=== PATIENT | female | born 1980 | race Caucasian/White ===

== ENCOUNTER → 2022-03-08 11:30 | Outpatient (BNVA) | payer OTHER, SELFPAY | PROVIDERS: PCP Nurse Practitioner Family; Visit Provider Nurse Practitioner Family | DX: R68.83 Chills (without fever) (principal); B00.1 Herpesviral vesicular dermatitis | CPT/HCPCS: 87426 ==

== ENCOUNTER 2022-08-31 10:27 | Outpatient (CLI) | payer OTHER, SELFPAY ==
--- NOTE | 2022-08-31 10:49 | MM_ITS ---
WS: [id number] VIEWS: MLO and CC views both breasts. 3D digital tomosynthesis is also included in this exam. No prior exams. Findings: There was no sign of mass, architectural distortion or suspicious calcification in either breast. Th e breasts are heterogeneously dense which may obscure small masses. MM/[place] [id number] Impression: BI-RADS: 2-Benign finding. FOLLOW-UP: 1 Year Follow-up This mammogram was also analyzed by the Computer Aided Detection System [employer] e Guest Relations Officer.
== END 2022-08-31 10:28 | disposition home or self-care (01) ==
LOC: RAD 10:32 → MOBLMAM 10:50
PROVIDERS: PCP Nurse Practitioner Family; Visit Provider Nurse Practitioner Family
DX: Z12.31 Encounter for screening mammogram for malignant neoplasm of breast (principal)
CPT/HCPCS: 77063; 77067

== ENCOUNTER → 2023-08-03 14:43 | Outpatient (BNVA) | payer OTHER, SELFPAY | PROVIDERS: PCP Nurse Practitioner Family; Visit Provider Obstetrics & Gynecology | DX: Z01.419 Encounter for gynecological examination (general) (routine) without abnormal findings (principal); N93.9 Abnormal uterine and vaginal bleeding, unspecified | CPT/HCPCS: 87624 ==

== ENCOUNTER 2023-08-06 16:34 | Outpatient (CLI) | payer OTHER, SELFPAY ==
--- NOTE | 2023-08-06 16:45 | USR_ITS ---
PROCEDURE INFORMATION: Exam: US Pelvis, Complete, Non-Obstetric Exam date and time: 08/06/2023 4:57 PM Age: 42 years old Clinical indication: Other: Bleeding; Additional info: N93.9 - abnormal uterine and vaginal bleeding, unspecified TECHNIQUE: Imaging protocol: Transabdominal pelvic nonobstetric ultrasound. Complete exam. Real time ultrasound with image documentation. COMPARISON: No relevant prior studies available. FINDINGS: Uterus: Uterus is normal. Endometrial stripe is normal. Right ovary/adnexa: Right ovary demonstrates color blood flow with several follicles. Left ovary/adnexa: Left ovary demonstrates color blood flow with several follicles. Intraperitoneal space: No intraperitoneal fluid. Urinary bladder: Normal. Other findings: Trace nonspecific fluid in the pelvis. US/US pelv w/transvag [id number] IMPRESSION: 1. Endometrial stripe measures 7 mm, within normal limits for a premenopausal woman. 2. Right ovary demonstrates color blood flow with several follicles. 3. Left ovary demonstrates color blood flow with several follicles. 4. Trace nonspecific fluid in the pelvis.
== END 2023-08-06 16:35 | disposition home or self-care (01) ==
LOC: RAD 16:35
PROVIDERS: PCP Nurse Practitioner Family; Visit Provider Obstetrics & Gynecology
DX: N93.9 Abnormal uterine and vaginal bleeding, unspecified (principal)
CPT/HCPCS: 76830; 76856

== ENCOUNTER 2023-09-16 06:45 | Day surgery (SDC) | payer OTHER, SELFPAY ==
--- NOTE | 2023-09-15 21:52 | W.PM.OPSFHP ---
Same Day Surgery H&P Indication for Procedure/HPI DATE OF PROCEDURE: September 16, 2023 CHIEF COMPLAINT/INDICATIONFOR SURGICAL PROCEDURE: abnormal uterine bleeding PREOP DIAGNOSIS: abnormal uterine bleeding PLANNED PROCEDURE: Operation Date: 09/16/23 08:20 Proposed Procedures p Hysteroscopy Hysteroscopy w/ Endometrial Sampling 56401, N93.9(Not Applicable) - Manny Salamanca MD s Poylpectomy possible(Not Applicable) - Manny Salamanca MD 42 y.o. bleeding two weeks per month x several years Medications/Allergies* Home Medications Medication Instructions Recorded Confirmed Type Cannabidiol capsules 25 mg PO .2 HS 06/15/23 09/14/23 History L.acidophilus-L.plantarum-L.rhamnosus cap PO DAILY 06/15/23 08/18/23 History 1 billion cell capsule,delay rel (Probiotic Pearls Women's) amino acids 5 tab PO .5 X Daily 06/15/23 09/14/23 History d-mannose 500 mg capsule 500 mg PO .2 Daily 06/15/23 09/14/23 History ferrous gluconate 225 mg (27 mg 225 mg PO BID 06/15/23 09/14/23 History iron) tablet magnesium glycinate 600 mg PO .HS 06/15/23 09/14/23 History progesterone micronized 200 mg 200 mg PO DAILY 06/15/23 09/14/23 History capsule valacyclovir 500 mg tablet 500 mg PO DAILY 06/15/23 09/14/23 History (Valtrex) vitamin B complex 1 cap PO DAILY 06/15/23 09/14/23 History hydroxyzine HCl 50 mg tablet 20 mg PO QID PRN insomnia, anxiety 09/14/23 09/14/23 History Allergies/Adverse Reactions Allergy/AdvReac Type Severity Reaction Status Date / Time gluten Allergy Unknown Unknown Verified 09/14/23 10:28 Milk Containing Products Allergy Unknown Unknown Verified 09/14/23 10:28 (Dairy) Pertinent History/Comorbid Conditions* Medical History (Updated 08/16/23 @ 20:28 by Manny Salamanca MD) Psychiatric care Family History (Updated 08/03/23 @ 13:03 by Jennifer Cordero LPN) Diabetes Mother Heart disease Mother Hypercholesteremia Mother Breast cancer Mother Hypertension Mother Father Thyroid disease Mother Father Stroke Mother Denies family history of Colon cancer Ovarian cancer Prostate cancer Uterine cancer Pertinent Exam Findings alert, oriented x 3, clear to auscultation bilaterally and regular rate & rhythm Pertinent Data Pap 08-03-23 NILM, negative HPV Pelvic sono 08-06-23 normal uterus and ovaries Endometrium 7 mm Recommendations Surgery/Procedure today Coding Level of Care Code Acute Code for Chg Fwd Time Spent (min) 20
[2023-09-16] VITALS (8 sets, daily range): BP systolic 102–125; BP diastolic 64–82; PULSE 55–78; RESP 16–18; TEMP 36.2–36.6; O2SAT 95–100; BMI 23.9
[2023-09-16] MEDS: scopolamine 1.5 Patch 1 PATCH TRANSDERMA (07:37)
[2023-09-16] MEDS: sodium chloride 0.9% 1,000 ML 30 ML IV (07:42)
--- NOTE | 2023-09-16 07:52 | W.PM.OPSUD ---
Surgery/Procedure H&P Update DATE OF PROCEDURE: September 16, 2023 DATE H&P PERFORMED: 09/15/23 H&P UPDATE INFORMATION: I have reviewed H&P completed within last 30 days, I have examined patient prior to procedure and No changes to prior documentation PREOP DIAGNOSIS: abnormal uterine bleeding PLANNED PROCEDURE: Operation Date: 09/16/23 08:20 Proposed Procedures p Hysteroscopy Hysteroscopy w/ Endometrial Sampling 07029, N93.9(Not Applicable) - Manny Salamanca MD s Poylpectomy possible(Not Applicable) - Manny Salamanca MD
[2023-09-16 08:03] LABS: OR HCG Qualitative Urine Negative (Negative)
--- NOTE | 2023-09-16 08:17 | ANES.PREANE2 ---
Pre-Anesthetic Assessment Height/Weight: Height 1.6 m Weight 61.235 kg Temp Pulse Resp BP Pulse Ox O2 Del Method 97.9 F 69 18 118/64 99 Room Air 09/16/23 07:23 09/16/23 07:23 09/16/23 07:23 09/16/23 07:23 09/16/23 07:23 09/16/23 07:26 Preop Diagnosis: abnormal uterine bleeding Operation Date: 09/16/23 08:20 Proposed Procedures p Hysteroscopy Hysteroscopy w/ Endometrial Sampling 74663, N93.9(Not Applicable) - Manny Salamanca MD s Poylpectomy possible(Not Applicable) - Manny Salamanca MD Familial anesthetic complications: none Was Beta Tyshawn taken within 24 hours: N/A Was Clonidine taken within 24 hours: N/A Last intake: Intake Last Liquid Date 09/15/23 Last Liquid Time 22:30 Last Solid Date 09/15/23 Last Solid Time 18:30 Social No alcohol and No tobacco Exam alert, oriented x 3 and clear to auscultation bilaterally Airway Mallampati: Class II Dentition: full History/ROS No significant history except as noted Pulmonary None reported CV/HEM None reported None reported Hepatic None reported GI None reported Metabolic None reported Musc/skel None reported Neuropsych Anxiety Anesthetic Plan ASA status: 2 Anesthesia: Anesthesia Evaluation and General Risk of > 500 ml blood loss (7ml/kg in children): No Medications/Allergies Home Medications Medication Instructions Recorded Confirmed Last Taken Type Cannabidiol capsules 25 mg PO .2 HS 06/15/23 09/14/23 09/13/23 History L.acidophilus-L.plantarum-L.rhamnosus cap PO DAILY 06/15/23 08/18/23 09/13/23 History 1 billion cell capsule,delay rel (Probiotic Pearls Women's) amino acids 5 tab PO .5 X Daily 06/15/23 09/14/23 Unknown History d-mannose 500 mg capsule 500 mg PO .2 Daily 06/15/23 09/14/23 09/13/23 History escitalopram oxalate 20 mg tablet 20 mg PO DAILY #30 tabs 06/15/23 09/14/23 09/13/23 Rx (Lexapro) ferrous gluconate 225 mg (27 mg 225 mg PO BID 06/15/23 09/14/23 09/13/23 History iron) tablet magnesium glycinate 600 mg PO .HS 06/15/23 09/14/23 09/13/23 History progesterone micronized 200 mg 200 mg PO DAILY 06/15/23 09/14/23 09/13/23 History capsule valacyclovir 500 mg tablet 500 mg PO DAILY 06/15/23 09/14/23 09/13/23 History (Valtrex) vitamin B complex 1 cap PO DAILY 06/15/23 09/14/23 09/13/23 History hydroxyzine HCl 50 mg tablet 20 mg PO QID PRN insomnia, anxiety 09/14/23 09/14/23 Unknown History Allergies Allergy/AdvReac Type Severity Reaction Status Date / Time gluten Allergy Unknown Unknown Verified 09/14/23 10:28 Milk Containing Products Allergy Unknown Unknown Verified 09/14/23 10:28 (Dairy) Current Medications Generic Name Dose Route Start Last Admin Trade Name Freq PRN Reason Stop Dose Admin Sodium Chloride 1,000 mls @ 30 mls/hr 09/16/23 07:00 09/16/23 07:42 Sodium Chloride 0.9% IV 09/17/23 06:59 30 mls/hr .Q24H CHINEDU Administration PFSH Anesthesia Medical History Psychiatric care Family History Mother Breast cancer Diabetes Heart disease Hypercholesteremia Hypertension Stroke Thyroid disease Father Hypertension Thyroid disease Denies family history of Colon cancer Ovarian cancer Prostate cancer Uterine cancer Data Anesthesia Cardiac Studies: No Data to Display
--- NOTE | 2023-09-16 10:45 | ANE.PACU2 ---
Inpatient post-anesthesia follow up: Airway intact: Yes Vital signs: Temperature 97.1 F Pulse Rate 78 Respiratory Rate 16 Blood Pressure 113/74 Pulse Oximetry 96 Oxygen Delivery Me thod Room Air Oxygen Flow Rate 10 Fraction of Inspir ed Oxygen Hydration adequate: Yes Nausea and vomiting: No Pain level: 1 Mental status: Baseline
--- NOTE | 2023-09-16 19:50 | PM.OP ---
Operative Report Date of procedure: September 16, 2023 Pre-op diagnosis: abnormal uterine bleeding Post-op diagnosis: same Post-op findings: one broad-based endometrial polyp Minimal endometrial tissue Three endocervical polyps Procedure done: Hysteroscopy Endometrial sampling and polypectomy with Myosure Removal of endocervical polyps with Myosure Implants: none Specimens removed/disposition: endometrial and endocervical tissue Surgeon: Manny Salamanca MD Anesthesia: General Estimated blood loss (mL): 5 Complications: none Findings: one broad-based endometrial polyp Minimal endometrial tissue Three endocervical polyps Condition: stable Disposition: PACU Brief History: 42 y.o. with abnormal uterine bleeding Procedure: Informed consent signed. Patient was taken to the operating room. Anesthesia was induced. Patient was placed in dorsolithotomy position, prepped and draped for hysteroscopy. A bivalve speculum was placed in the vagina. The anterior lip of the cervix was grasped with a sharp-toothed tenaculum. The cervix was serially dilated with Hegar dilators. . There were three endocervical polyps seen. A hysteroscope was placed into the endometrial cavity. The endometrial cavity was seen have a single broad-base polyp and minimal tissue. A Myosure was then inserted and the endometrial polyp and endocervical polyps were removed and sent to pathology. The endometrial cavity was seen to be intact. The hysteroscope and Myosure were then removed. No bleeding was seen. The sharp-toothed tenaculum was removed. There was no bleeding from the endometrial cavity or cervix. The patient was then placed supine and awakened and taken to the PACU. Postop condition: stable EBL: 5 cc Sponge and instruments counts were normal x 2 Complications: none
== END 2023-09-16 10:43 | disposition home or self-care (01) ==
PROVIDERS: Anesthesiology; PCP Nurse Practitioner Family; Visit Provider Obstetrics & Gynecology
PROC: 0UJD8ZZ Inspection of Uterus and Cervix, Via Natural or Artificial Opening Endoscopic (ICD-10-PCS; CPT 58555; principal; 2023-09-16 08:10)
PROC: (CPT 58558; 2023-09-16 08:10)
DX: N93.9 Abnormal uterine and vaginal bleeding, unspecified (principal); N84.0 Polyp of corpus uteri
CPT/HCPCS: 58558; 81025; 88305; J1100; J1200; J2250; J2405; J2704; J3010; J7030